=== PATIENT | female | born 1950 | race Caucasian/White ===

== ENCOUNTER → 2021-11-01 | Outpatient (CLI) | payer MEDICARE ==
[~2021-11-01] MED LIST: FLEXERIL5 MG PO; LEXAPRO20 MG PO; METFORMIN1000 MG PO; MOTRIN800 MG PO; SIMVASTATIN20 MG PO; SYNTHROID0.075 MG PO; TORADOL10 MG PO; VICTOZA6 MG/ML SC
== END | disposition home or self-care (01) ==
LOC: COVID19 15:03
PROVIDERS: ATTEND Internal Medicine
DX: U07.1 COVID-19 (principal)